=== PATIENT | male | born 1960 | race Caucasian/White ===

== ENCOUNTER 2018-07-04 07:14 | Emergency (ER) | payer OTHER ==
[~2018-07-04 07:14] MED LIST: EPINEPHrine 0.1 MG/ML SYG; NA BICARBONATE 8.4% 50 ML SYG
[2018-07-04 07:30] LABS: ADD MAN DIFF? NO
[2018-07-04 07:35] LABS: BASOPHIL # 0.1 10^3/ul (0.0-0.1); BASOPHILS % 0.8 % (0.0-2.0); EOSINOPHILS # 0.2 10^3/ul (0.0-0.5); EOSINOPHILS % 1.8 % (0.0-7.0); LYMPHOCYTES # 3.9 10^3/ul (0.8-2.9); LYMPHOCYTES % 28.8 % (15.0-51.0); MEAN CORPUSCULAR HEMOGLOBIN 30.7 pg (29.0-33.0); MEAN CORPUSCULAR HGB CONC 33.3 g/dl (32.0-37.0); MEAN PLATELET VOLUME 11.6 fl (7.4-10.4); MONOCYTE # 0.9 10^3/ul (0.3-0.9); MONOCYTES % 6.3 % (0.0-11.0); NEUTROPHIL # 8.3 10^3/ul (1.6-7.5); NEUTROPHILS % 61.9 % (39.0-77.0); PLATELET COUNT 120 10^3/UL (140-415); POSITIVE DIFF @See below; RED BLOOD COUNT 4.89 10^6/ul (4.70-6.10); RED CELL DISTRIBUTION WIDTH 12.4 % (11.5-14.5)
[2018-07-04 07:35] LABS: WHITE BLOOD COUNT 13.5 10^3/ul (4.8-10.8)
[2018-07-04 08:01] LABS: ANION GAP 30 (8-16); BLOOD UREA NITROGEN 18 mg/dl (7-20); CALCIUM 10.3 mg/dl (8.4-10.2); CHLORIDE 114 mmol/L (97-110); CREATININE 1.44 mg/dl (0.61-1.24); GLUCOSE 206 mg/dl (70-220); SODIUM 145 mmol/L (135-144)
[2018-07-04 08:08] LABS: CARBON DIOXIDE 6 mmol/L (21-31)
[2018-07-04 08:12] LABS: TROPONIN-I 0.023 ng/ml (0.000-0.120)
[2018-07-04] MEDS: EPINEPHRINE 4 MG in D5W 250 ML IV (09:00)
[2018-07-04] MEDS: NORepinephrine 8MG/250 ML (PMX 250 ML IV (09:00)
== END 2018-07-04 13:45 | disposition expired ==
LOC: E/R 07:14
DX: I46.9 Cardiac arrest, cause unspecified (principal); E11.9 Type 2 diabetes mellitus without complications; I10 Essential (primary) hypertension
CPT/HCPCS: 31500; 36415; 76937; 80048; 82962; 84484; 85025; 92950; 93005; 96374; 96375; 99285-25